=== PATIENT | female | born 1985 | race Caucasian/White ===

== ENCOUNTER 2019-05-15 15:37 | Outpatient (CLI) | payer OTHER, MEDICAID, SELFPAY ==
--- NOTE | 2019-05-15 15:45 | CT_ITS ---
WS: [id number] CT NECK TECHNIQUE: Contrast-enhanced CT of the neck with coronal and sagittal reformatted images. CLINICAL INFORMATION: LOCALIZED SWELLING, MASS AND LUMP NECK COMPARISON: None. DLP: 2173.[address] scans at [facility] use at least one of these dose optimization techniques: automat ed exposure control; mA and/or kV adjustment per patient size (includes targeted exams where dose is matched to clinical indication); or iterative reconstruction. FINDINGS: Parotid glands are normal. Incidental left intraparotid lymph node. Normal submandibular glands. Norm al palatine tonsils. Normal parapharyngeal fat. Tongue base is normal. No evidence of supraglottic or glottic mass. Normal vallecula and piriform sinuses. Subglottic airway is normal. Normal thyroid gla nd. Prominent cervical lymph nodes along both cervical chains and posterior triangle not pathologically e nlarged. Largest lymph nodes jugulodigastric measuring 10 mm. Findings are likely reactive. Normal cervical spine. Lung apices are well aerated. Partially visualized intracranial contents unrem arkable. Paranasal sinuses and mastoid air cells are well aerated. CT/CT neck w con* [id number] IMPRESSION: 1. Normal salivary glands. 2. A few prominent cervical lymph nodes upper limits of normal likely reactive . 3. Normal thyroid gland. 4. No evidence of supraglottic or glottic mass. 5. Paranasal sinuses and mastoid air cells well aerated.
[2019-05-15] MEDS: iohexol 300 mg/mL 100 mL Btl IV (15:59)
== END 2019-05-15 15:38 | disposition home or self-care (01) ==
PROVIDERS: Family Provider Family Medicine; PCP Family Medicine; Visit Provider Specialist
DX: R47.02 Dysphasia (principal)
CPT/HCPCS: 70491; Q9967

== ENCOUNTER → 2020-08-06 11:00 | Outpatient (BNVA) | payer BC, SELFPAY | PROVIDERS: Family Provider Family Medicine; PCP Family Medicine; Visit Provider Internal Medicine Rheumatology | DX: M19.90 Unspecified osteoarthritis, unspecified site (principal); M79.7 Fibromyalgia; Z79.899 Other long term (current) drug therapy | CPT/HCPCS: 99204 ==

== ENCOUNTER → 2022-09-21 18:45 | Outpatient (BNVA) | payer BC, MEDICAID, SELFPAY | PROVIDERS: Family Provider Family Medicine; PCP Family Medicine; Visit Provider Nurse Practitioner Family | DX: J02.9 Acute pharyngitis, unspecified (principal) | CPT/HCPCS: 87070; 87071; 87880 ==

== ENCOUNTER 2023-02-24 13:31 | Outpatient (CLI) | payer BC, MEDICAID, SELFPAY ==
--- NOTE | 2023-02-24 13:51 | MM_ITS ---
WS: [id number] BILATERAL 3D TOMOSYNTHESIS DIGITAL DIAGNOSTIC MAMMOGRAPHY WITH CAD CLINICAL INFORMATION: LT BR LUMP HISTORY: LEFT breast lumps. RIGHT breast pain. COMPARISON: Baseline TECHNIQUE: Bilateral CC, MLO, and ML views. FINDINGS: Scattered fibroglandular densities bilaterally. Dense slightly spiculated parenchymal tissue upper ou ter RIGHT breast posterior depth near the pain marker. Ultrasound performed in this area. Additional markers LEFT breast upper outer quadrant with palpable lump and pain markers. No definite underlying parenchymal abnormalities in this area. Ultrasound is pending. No other suspicious findings. ULTRASOUND BREAST BILATERAL TECHNIQUE: Ultrasound bilateral breast focused area of concern. CLINICAL INFORMATION: LT BR LUMP FINDINGS: RIGHT BREAST: Ultrasound upper outer quadrant RIGHT breast. Somewhat ill-defined hypoechoic shadowing area measuring 5.6 x 8.0 x 5.5 mm at the 11 o'clock position 4 cm from the nipple. This is indetermi ann marie and corresponds to the parenchymal abnormality on the mammogram. Recommend further evaluation wi th ultrasound-guided biopsy. No suspicious abnormalities in the LEFT breast LEFT BREAST: Ultrasound upper outer quadrant LEFT breast.No suspicious abnormalities in the LEFT ke[address] st IMPRESSION: MM/[place] [id number] BI-RADS: 4-Suspicious Finding-Biopsy Should Be Considered FOLLOW UP: US Guided Biopsy Recommended Recommend ultrasound-guided biopsy of the above-described RIGHT breast lesion.
== END 2023-02-24 13:32 | disposition home or self-care (01) ==
LOC: RAD 13:32
PROVIDERS: Family Provider Family Medicine; PCP Family Medicine; Visit Provider Family Medicine
DX: N63.21 Unspecified lump in the left breast, upper outer quadrant (principal); N64.4 Mastodynia
CPT/HCPCS: 76642; 77062; G0279

== ENCOUNTER → 2024-04-22 17:21 | Outpatient (BNVA) | payer BC, MEDICAID, SELFPAY | PROVIDERS: Family Provider Family Medicine; PCP Family Medicine; Visit Provider Nurse Practitioner Family | DX: J02.9 Acute pharyngitis, unspecified (principal) | CPT/HCPCS: 87880 ==

== ENCOUNTER → 2024-09-02 12:14 | Outpatient (BNVA) | payer BC, MEDICAID, SELFPAY | PROVIDERS: Family Provider Family Medicine; PCP Family Medicine; Visit Provider Emergency Medicine | DX: J02.9 Acute pharyngitis, unspecified (principal) | CPT/HCPCS: 87071; 87880 ==

== ENCOUNTER → 2024-10-22 13:59 | Outpatient (BNVA) | payer BC, MEDICAID, SELFPAY | PROVIDERS: Family Provider Family Medicine; PCP Family Medicine; Visit Provider Family Medicine | DX: M79.7 Fibromyalgia (principal); E03.9 Hypothyroidism, unspecified; M19.90 Unspecified osteoarthritis, unspecified site; N93.9 Abnormal uterine and vaginal bleeding, unspecified; R10.9 Unspecified abdominal pain | CPT/HCPCS: 80053; 82306; 82607; 84443; 85025; 85651; 86003; 86008; 86038; 86140; 86431 ==

== ENCOUNTER → 2024-10-24 11:42 | Outpatient (BNVA) | payer BC, MEDICAID, SELFPAY | PROVIDERS: Family Provider Family Medicine; PCP Family Medicine; Visit Provider Family Medicine | DX: M79.7 Fibromyalgia (principal); M19.90 Unspecified osteoarthritis, unspecified site; E03.9 Hypothyroidism, unspecified | CPT/HCPCS: 86003; 86008; 86038 ==

== ENCOUNTER → 2025-02-10 17:23 | Outpatient (BNVA) | payer BC, MEDICAID, SELFPAY | PROVIDERS: Family Provider Family Medicine; PCP Family Medicine; Visit Provider Registered Nurse Neonatal Intensive Care | DX: S52.572A Other intraarticular fracture of lower end of left radius, initial encounter for closed fracture (principal); W19.XXXA Unspecified fall, initial encounter | CPT/HCPCS: 73110 ==

== ENCOUNTER → 2025-02-14 13:26 | Outpatient (BNVA) | payer BC, MEDICAID, SELFPAY | PROVIDERS: Family Provider Family Medicine; PCP Family Medicine; Visit Provider Orthopaedic Surgery | DX: S59.202A Unspecified physeal fracture of lower end of radius, left arm, initial encounter for closed fracture (principal); W01.0XXA Fall on same level from slipping, tripping and stumbling without subsequent striking against object, initial encounter | CPT/HCPCS: 73110 ==

== ENCOUNTER → 2025-03-05 13:19 | Outpatient (BNVA) | payer BC, MEDICAID, SELFPAY | PROVIDERS: Family Provider Family Medicine; PCP Family Medicine; Visit Provider Orthopaedic Surgery | DX: S52.592D Other fractures of lower end of left radius, subsequent encounter for closed fracture with routine healing (principal); X58.XXXD Exposure to other specified factors, subsequent encounter | CPT/HCPCS: 73110 ==